=== PATIENT | male | born 1965 | race Caucasian/White ===

== ENCOUNTER 2019-10-02 08:25 | Inpatient (IN) ==
[2019-10-02 08:40] LABS: BE -3.3 mmoll (-3.0-3.0); BLOOD TYPE ARTERIAL; HCO3-(ACT) 22.3 mmoll (20.0-26.0); METHB 1.2 % (0.0-1.5); O2(CT) 18.7 mL/dL (15.0-23.0); O2HB 95.1 % (95.0-99.0); PCO2(98.6) 40 mmHg (35-45); PO2(98.6) 96 mmHg (60-100); SAMPLE BLOOD; SAO2 98.7 % (95.0-100.0); THB 13.9 g/dL (11.5-17.4); pH(98.6) 7.35 (7.35-7.45)
[2019-10-02 08:44] LABS: ALLEN TEST YES; MODALITY VENTIMASK
[2019-10-02 08:50] LABS: BASO# 0.01 X1000 (0.0-0.2); BASO% 0.2 % (0.0-0.8); EOS# 0.03 X1000 (0.0-0.7); EOS% 0.6 % (0.0-10.0); HEMATOCRIT 41.4 % (42.0-52.0); HEMOGLOBIN 13.6 g/dL (14.0-18.0); LYMPH# 1.35 X1000 (1.2-3.4); LYMPH% 26.7 % (20.5-51.1); MCH 31.9 PG (27-31); MCHC 32.9 g/dL (33-37); MONO# 0.63 X1000 (0.11-0.59); MONO% 12.5 % (1.7-9.3); MPV 10.1 FL (7.4-10.4); NEUT# 3.04 X1000 (1.4-6.5); PLT 378 X1000 (130-400); RBC 4.27 XMIL (4.7-6.1); RDW 13.2 % (11.5-14.5); WBC 5.06 X1000 (4.8-10.8)
[2019-10-02 09:08] LABS: AGAP 13; ALBUMIN 4.4 g/dL (3.5-5.0); ALKALINE PHOSPHATASE 101 U/L (32-122); BUN 9 mg/dL (8-22); CALCIUM 9.5 mg/dL (8.8-10.2); CHLORIDE 106 mmol/L (98-107); COSMO 281; ESTIMATED GFR > 60; GLUCOSE 150 mg/dL (70-104); GOT 31 U/L (10-34); GPT 25 U/L (10-44); POTASSIUM 4.1 mmol/L (3.5-5.1); SODIUM 140 mmol/L (136-145); TCO2 21 mmol/L (25-35)
[2019-10-02 09:17] LABS: CK PROFILE 215 U/L (24-204)
[2019-10-02 09:20] LABS: INR 0.97; PROTIME 13.4 Seconds (11.0-16.0)
[2019-10-02 09:21] LABS: PTT 30.5 Seconds (22.3-41.8)
[2019-10-02 09:32] LABS: CK-MB 6.44 ng/mL (0.0-5.0)
[2019-10-02 11:18] LABS: URINE SOURCE CLEAN CATCH
[2019-10-02 11:27] LABS: BILIRUBIN URINE NEGATIVE (NEGATIVE); BLOOD URINE NEGATIVE (NEGATIVE); COLOR STRAW; GLUCOSE URINE NEGATIVE (NEGATIVE); KETONE URINE NEGATIVE (NEGATIVE); LEUKOCYTES URINE NEGATIVE (NEGATIVE); NITRITE URINE NEGATIVE (NEGATIVE); PH URINE 6.5; PROTEIN URINE NEGATIVE (NEGATIVE); SP GRAVITY URINE 1.009; TURBIDITY URINE CLEAR (CLEAR); UROBILINOGEN URINE NORMAL (NORMAL)
[2019-10-02 11:31] LABS: UR EPITHELIAL CELLS <10 /HPF (<10); URINE BACTERIA NEGATIVE /HPF; URINE RBC <10 /HPF (<10); URINE WBC <10 /HPF (<10)
[2019-10-03 06:15] LABS: HEMATOCRIT 37.2 % (42.0-52.0); HEMOGLOBIN 12.2 g/dL (14.0-18.0); LYMPH# 0.18 X1000 (1.2-3.4); MCH 31.8 PG (27-31); MCHC 32.8 g/dL (33-37); MCV 96.9 FL (81-99); MONO# 0.04 X1000 (0.11-0.59); MONO% 0.9 % (1.7-9.3); MPV 10.4 FL (7.4-10.4); NEUT# 4.26 X1000 (1.4-6.5); NEUT% 95.1 % (42.2-75.2); PLT 300 X1000 (130-400); RBC 3.84 XMIL (4.7-6.1); RDW 12.7 % (11.5-14.5); WBC 4.48 X1000 (4.8-10.8)
[2019-10-03 06:42] LABS: LYMPHS 2 % (21-51); SEGS 96 % (42-75)
[2019-10-03 07:02] LABS: ALB/GLOB RATIO 1.5; ALBUMIN 3.8 g/dL (3.5-5.0); CALCIUM 8.7 mg/dL (8.8-10.2); CREATININE 1.3 mg/dL (0.7-1.2); MAGNESIUM 1.6 mg/dL (1.5-2.7); POTASSIUM 3.2 mmol/L (3.5-5.1); TOTAL BILIRUBIN 0.44 mg/dL (0.20-1.00); TOTAL PROTEIN 6.4 g/dL (6.3-8.3)
[2019-10-03 15:40] LABS: UR AMPHETAMINES QUAL NONE DETECTED (NONE DETECT); UR BARBITUATES QUAL NONE DETECTED (NONE DETECT); UR BENZODIAZEPIN QUAL NONE DETECTED (NONE DETECT); UR CANNABINOIDS QUAL NONE DETECTED (NONE DETECT); UR COCAINE QUAL NONE DETECTED (NONE DETECT); UR METHADONE QUAL NONE DETECTED (NONE DETECT); UR OPIATES QUAL NONE DETECTED (NONE DETECT); UR OXYCODONE QUAL NONE DETECTED (NONE DETECT); UR PCP QUAL NONE DETECTED (NONE DETECT)
[2019-10-04 06:54] LABS: HEMATOCRIT 44.4 % (42.0-52.0); HEMOGLOBIN 14.5 g/dL (14.0-18.0); LYMPH# 1.36 X1000 (1.2-3.4); MCH 31.8 PG (27-31); MCHC 32.7 g/dL (33-37); MCV 97.4 FL (81-99); MONO# 0.76 X1000 (0.11-0.59); MONO% 7.8 % (1.7-9.3); MPV 10.2 FL (7.4-10.4); NEUT# 7.58 X1000 (1.4-6.5); NEUT% 78.2 % (42.2-75.2); PLT 373 X1000 (130-400); RBC 4.56 XMIL (4.7-6.1); RDW 13.1 % (11.5-14.5)
[2019-10-04 07:20] LABS: AGAP 14; ALB/GLOB RATIO 1.5; ALBUMIN 4.4 g/dL (3.5-5.0); ALKALINE PHOSPHATASE 84 U/L (32-122); BUN 13 mg/dL (8-22); CHLORIDE 90 mmol/L (98-107); COSMO 275; CREATININE 1.2 mg/dL (0.7-1.2); ESTIMATED GFR > 60; GLUCOSE 117 mg/dL (70-104); GOT 18 U/L (10-34); GPT 18 U/L (10-44); MAGNESIUM 1.8 mg/dL (1.5-2.7); POTASSIUM 3.7 mmol/L (3.5-5.1); SODIUM 137 mmol/L (136-145); TCO2 33 mmol/L (25-35); TOTAL BILIRUBIN 0.64 mg/dL (0.20-1.00); TOTAL PROTEIN 7.4 g/dL (6.3-8.3)
[2019-10-04 07:30] LABS: HEMOGLOBIN A1C 5.3 % (4.8-6.0)
[2019-10-05 05:51] LABS: BASO# 0.01 X1000 (0.0-0.2); BASO% 0.1 % (0.0-0.8); EOS# 0.06 X1000 (0.0-0.7); EOS% 0.8 % (0.0-10.0); HEMATOCRIT 43.2 % (42.0-52.0); HEMOGLOBIN 14.4 g/dL (14.0-18.0); LYMPH# 1.54 X1000 (1.2-3.4); LYMPH% 21.2 % (20.5-51.1); MCH 32.3 PG (27-31); MCHC 33.3 g/dL (33-37); MCV 96.9 FL (81-99); MONO# 0.85 X1000 (0.11-0.59); MONO% 11.7 % (1.7-9.3); MPV 10.1 FL (7.4-10.4); NEUT# 4.81 X1000 (1.4-6.5); NEUT% 66.2 % (42.2-75.2); PLT 351 X1000 (130-400); RBC 4.46 XMIL (4.7-6.1); RDW 12.7 % (11.5-14.5); WBC 7.27 X1000 (4.8-10.8)
[2019-10-05 06:50] LABS: ALB/GLOB RATIO 1.2; ALBUMIN 3.5 g/dL (3.5-5.0); CALCIUM 9.1 mg/dL (8.8-10.2); CREATININE 1.6 mg/dL (0.7-1.2); MAGNESIUM 1.8 mg/dL (1.5-2.7); POTASSIUM 3.6 mmol/L (3.5-5.1); TOTAL BILIRUBIN 0.35 mg/dL (0.20-1.00); TOTAL PROTEIN 6.4 g/dL (6.3-8.3)
[2019-10-06 06:48] LABS: CALCIUM 9.5 mg/dL (8.8-10.2); CREATININE 1.4 mg/dL (0.7-1.2); POTASSIUM 4.5 mmol/L (3.5-5.1)
[2019-10-07 06:14] LABS: BASO# 0.01 X1000 (0.0-0.2); BASO% 0.1 % (0.0-0.8); EOS# 0.18 X1000 (0.0-0.7); EOS% 2.4 % (0.0-10.0); HEMATOCRIT 43.7 % (42.0-52.0); HEMOGLOBIN 14.1 g/dL (14.0-18.0); LYMPH# 1.22 X1000 (1.2-3.4); MCH 31.6 PG (27-31); MCHC 32.3 g/dL (33-37); MONO# 0.66 X1000 (0.11-0.59); MONO% 8.6 % (1.7-9.3); NEUT# 5.57 X1000 (1.4-6.5); NEUT% 72.9 % (42.2-75.2); PLT 310 X1000 (130-400); RBC 4.46 XMIL (4.7-6.1); RDW 12.3 % (11.5-14.5); WBC 7.64 X1000 (4.8-10.8)
[2019-10-07 06:39] LABS: AGAP 7; BUN 12 mg/dL (8-22); CALCIUM 8.9 mg/dL (8.8-10.2); CHLORIDE 103 mmol/L (98-107); COSMO 278; CREATININE 1.2 mg/dL (0.7-1.2); ESTIMATED GFR > 60; GLUCOSE 106 mg/dL (70-104); MAGNESIUM 1.9 mg/dL (1.5-2.7); PHOSPHORUS 2.8 mg/dL (2.7-4.5); POTASSIUM 4.6 mmol/L (3.5-5.1); SODIUM 139 mmol/L (136-145); TCO2 29 mmol/L (25-35)
[2019-10-07 15:51] VITALS: BP 128/82
== END 2019-10-07 17:58 | disposition home or self-care (01) | DRG 291 ==
LOC: P.ED 08:25 → SUATTDRO 15:37 → P.EDIPHOLD 15:37 → 2N 19:08
PROVIDERS: ATTEND Internal Medicine